=== PATIENT | female | born 1955 | race Caucasian/White ===

== ENCOUNTER → 2018-06-13 09:37 | Outpatient (CLI) | payer BC, SELFPAY ==
[2018-06-13 10:47] LABS: Cholesterol 216 mg/dL (200); High Density Lipoprotein 74 mg/dL; Triglycerides 91 mg/dL; Very Low Density Lipoprotein 18 mg/dL (5-40)
== END ==
PROVIDERS: Family Provider Student in an Organized Health Care Education/Training Program; PCP Student in an Organized Health Care Education/Training Program; Referring Provider Student in an Organized Health Care Education/Training Program; Visit Provider Student in an Organized Health Care Education/Training Program
DX: Z79.899 Other long term (current) drug therapy (principal)
CPT/HCPCS: 36415; 80061

== ENCOUNTER → 2018-06-19 08:04 | Outpatient (CLI) | payer BC, SELFPAY ==
[2017-10-22 08:30] VITALS: BMI 21.1
[2018-06-19 09:25] LABS: Hematocrit 41.7 % (37-47); Hemoglobin 13.5 g/dl (12.0-15.0); Mean Corp Hgb Conc 32.4 g/gl (32-36); Mean Corpuscular Hgb 29.5 pg (27.0-32.0); Mean Corpuscular Volume 91.2 fL (81-99); Platelet Count 176 K/mm3 (150-450); RBC Distribution Width CV 13.4 % (11.6-14.6); RBC Distribution Width SD 43.9 fl (35.1-43.9); Red Blood Count 4.57 M/mm3 (4.2-5.4)
[2018-06-19 09:31] LABS: Scan Indicated on CBC? Y/N NO
[2018-06-19 10:02] LABS: Vitamin D,25 Hydroxy 35.7 ng/mL (29.95-100.01)
[2018-06-19 10:57] LABS: ALB/GLOB Ratio 1.1 RATIO (0.9-2.4); AST(SGOT) 13 U/L (15-37); Alanine Aminotransfer ALT/SGPT 24 U/L (13-56); Alkaline Phosphatase 67 U/L (45-117); Anion Gap 10 (5-15); BUN 16 mg/dL (7-18); Calcium,Total 8.8 mg/dL (8.5-10.1); Chloride 106 mmol/L (98-107); Creatinine, Serum 0.73 mg/dL (0.55-1.02); EST Glomerular Filtration Rate 86 mL/min (>60); Est Glom Filt Rate - Afr Amer 104 mL/min (>60); Free T3 2.9 pg/mL (2.18-3.98); Globulin 3.6 g/dL (2.2-4.2); Glucose 82 mg/dL (74-106); Protein, Total 7.6 g/dL (6.4-8.2); Sodium Level 140 mmol/L (136-145); T4 Free Direct 0.86 ng/dL (0.76-1.46); Thyroid Stim Hormone (TSH) 3.98 uIU/mL (0.358-3.74)
== END ==
PROVIDERS: Family Provider Student in an Organized Health Care Education/Training Program; PCP Student in an Organized Health Care Education/Training Program; Referring Provider Student in an Organized Health Care Education/Training Program; Visit Provider Student in an Organized Health Care Education/Training Program
DX: E78.5 Hyperlipidemia, unspecified (principal); E55.9 Vitamin D deficiency, unspecified; R00.2 Palpitations
CPT/HCPCS: 36415; 80053; 82306; 84439; 84443; 84481; 85027

== ENCOUNTER → 2019-11-05 | Outpatient (CLI) | payer BC, SELFPAY ==
[2019-11-05 08:21] VITALS: BMI 21.1
[2019-11-10 01:09] LABS: HPV APTIMA, High Risk Negative (Negative)
== END | disposition home or self-care (01) ==
LOC: LABSPEC 11-06 09:38
PROVIDERS: PCP Student in an Organized Health Care Education/Training Program; Referring Provider Obstetrics & Gynecology; Visit Provider Obstetrics & Gynecology
DX: Z12.4 Encounter for screening for malignant neoplasm of cervix (principal)
CPT/HCPCS: 87624; 88175; G0145

== ENCOUNTER → 2020-02-01 | Outpatient (CLI) | payer BC, SELFPAY ==
[2019-11-05 08:21] VITALS: BMI 21.1
--- NOTE | 2020-02-01 16:21 | BI_ITS ---
MAMMOGRAPHY - BILATERAL SCREENING REASON FOR EXAM: Female, 64 years old. Routine annual screening examination. PERTINENT HISTORY: Sister with breast cancer. Remote left excisional breast biopsy. TECHNIQUE: Digital bilateral breast norm (3D mammographic acquisition) in the CC and MLO projections. 2-D mediolateral oblique (MLO) and craniocaudad (CC) views of both breasts were obtained. CAD: Full Field Digital Mammography with Computer Added Detection was performed. COMPARISON: Comparison is made with prior outside examination dated 01/05/2019. FINDINGS: Breast Composition: The breasts are extremely dense, which lowers the sensitivity of mammography. There are no dominant masses or suspicious calcifications. No other significant abnormalities are identified. There has been no significant change since the prior study. BI/SCREEN MAMM (CAD) W/NORM BILAT IMPRESSION: Stable bilateral screening mammogram. Yearly follow-up mammogram recommended. (A) ASSESSMENT CATEGORY: BIRADS Category 1: Negative. A letter regarding these results will be sent to the patient by the facility within 30 days. Approximately 10% of breast cancers are not detected by mammography. A normal mammogram should not delay biopsy of a clinically suspicious abnormality. [id number] Electronically Signed: Joon Jones, at 8:21 EDT , Service support ,
== END | disposition home or self-care (01) ==
LOC: OPBI 16:21
PROVIDERS: PCP Student in an Organized Health Care Education/Training Program; Referring Provider Obstetrics & Gynecology; Visit Provider Obstetrics & Gynecology
DX: Z12.31 Encounter for screening mammogram for malignant neoplasm of breast (principal)
CPT/HCPCS: 77063; 77067

== ENCOUNTER → 2021-03-08 10:17 | Outpatient (CLI) | payer MEDICARE, SELFPAY ==
[2019-11-05 08:21] VITALS: BMI 21.1
--- NOTE | 2021-03-08 10:19 | BI_ITS ---
MAMMOGRAPHY - BILATERAL SCREENING REASON FOR EXAM: Female, 65 years old. Routine annual screening examination. PERTINENT HISTORY: Sister with breast cancer. Remote left excisional breast biopsy. TECHNIQUE: Digital bilateral breast norm (3D mammographic acquisition) in the CC and MLO projections. 2-D mediolateral oblique (MLO) and craniocaudad (CC) views of both breasts were obtained. CAD: Full Field Digital Mammography with Computer Added Detection was performed. COMPARISON: Comparison is made with prior study 02/01/2020. FINDINGS: Breast Composition: The breasts are extremely dense, which lowers the sensitivity of mammography. There are no dominant masses or suspicious calcifications. No other significant abnormalities are identified. There has been no significant change since the prior study. BI/SCRN MAMM (CAD)W/NORM BILAT IMPRESSION: Stable bilateral screening mammogram. Yearly follow-up mammogram recommended. (A) ASSESSMENT CATEGORY: BIRADS Category 1: Negative. A letter regarding these results will be sent to the patient by the facility within 30 days. Approximately 10% of breast cancers are not detected by mammography. A normal mammogram should not delay biopsy of a clinically suspicious abnormality. [id number] Electronically Signed: Joon Jones MD at 11:05 EDT , Service support ,
== END ==
PROVIDERS: PCP Student in an Organized Health Care Education/Training Program; Referring Provider Nurse Practitioner Women's Health; Visit Provider Nurse Practitioner Women's Health
DX: Z12.31 Encounter for screening mammogram for malignant neoplasm of breast (principal)
CPT/HCPCS: 77063; 77067

== ENCOUNTER → 2022-03-20 | Outpatient (CLI) | payer MEDICARE, SELFPAY ==
--- NOTE | 2022-03-20 11:55 | BI_ITS ---
MAMMOGRAPHY - BILATERAL SCREENING REASON FOR EXAM: Female, 66 years old. Routine annual screening examination. PERTINENT HISTORY: Sister with breast cancer. Remote left excisional breast biopsy. TECHNIQUE: Digital bilateral breast norm (3D mammographic acquisition) in the CC and MLO projections. 2-D mediolateral oblique (MLO) and craniocaudad (CC) views of both breasts were obtained. CAD: Full Field Digital Mammography with Computer Added Detection was performed. COMPARISON: Comparison is made with prior study dated 03/08/2021 and 02/01/2020. FINDINGS: Breast Composition: The breasts are extremely dense, which lowers the sensitivity of mammography. There are no dominant masses or suspicious calcifications. No other significant abnormalities are identified. There has been no significant change since the prior study. BI/SCRN MAMM (CAD)W/NORM BILAT IMPRESSION: Stable bilateral screening mammogram. Yearly follow-up mammogram recommended. (A) ASSESSMENT CATEGORY: BIRADS Category 1: Negative. A letter regarding these results will be sent to the patient by the facility within 30 days. Approximately 10% of breast cancers are not detected by mammography. A normal mammogram should not delay biopsy of a clinically suspicious abnormality. [id number] Electronically Signed: Joon Jones MD at 13:00 EDT ,
== END | disposition home or self-care (01) ==
LOC: OPBI 11:42
PROVIDERS: PCP Student in an Organized Health Care Education/Training Program; Referring Provider Obstetrics & Gynecology; Visit Provider Obstetrics & Gynecology
DX: Z12.31 Encounter for screening mammogram for malignant neoplasm of breast (principal); Z92.89 Personal history of other medical treatment; Z80.3 Family history of malignant neoplasm of breast
CPT/HCPCS: 77063; 77067

== ENCOUNTER 2022-05-16 08:30 | Outpatient (RCR) | payer MEDICARE, SELFPAY ==
--- NOTE | 2022-02-02 09:17 | HP.OTEVAL_ITS ---
Patient's Visit Information DULCE MARIA HIGHTOWER is a 66 year old F, referred to Occupational Therapy by Dr. Juancho Oglesby MD, with a diagnosis of rupture of FPL left thumb. Date of Evaluation: 01/31/22 Occupational Therapist: Ely Gonzalez, OTR/Maria Esther, CHT - Subjective This 66 year old female was seen for OT eval with dx of rupture of flexor tendon of finger- Pt states tendon ruptured from plate. pt had ORIF 9 years ago - rupture happened November 17 and was able to have the repair on pt arrives 1 week 6 days s/p. pt has thumb spica orthosis on - states she had her stitched removed yesterday 01/30/22. Pt states feeling good otherwise stiffness in fingers. pt is right handed. pt is currently limited with bilateral hand use due to newly healing structures. - ADLs Comments: pt has limited use of left hand due to healing structures - Objective incision dry noted still raised slightly - ROM Wrist: right 75/65 left 35/35 CMC: right 5 left 5 MP: right 50 left 10 IP: right 70 left 5 Opposition: Kapandji opposition scale right 10 left 4 ROM Comments: pt demo with good ROM for newly healing structures- - Strength Strength Comments: will test later date - Sensation Sensation Comments: tingling at times - Quick DASH-Disab of Arm,Shoulder& Hand Quick DASH Score: 59.0900 - Goals Goal:100% adherence to protocol: Yes Comment: Dr. Oglesby Flexor tendon early active motion per his approval on protocol Goal:Daily scar massage when approriate: Yes Goal:ROM equal to unaffected hand: Yes Goal:Signals Intelligence Analyst/Pinch strength at least 75% of unaffected hand: Yes Goal:Full use of affected hand in daily activities including: Yes Goal:Decrease scar hypersensitivity: Yes - Rehabilitation General Assessment: pt arrives to OT s/p from left flexor tendon repair- and hardware removal from left ORIF 9 years ago-. pt arrives 1 week 6 days s/p transfer FDS to FPL , flexor tenosynovectomy left wrist- flexor tenolysis x 9 left forearm- metal removal left radius - left CTR with insertion neurogen tubule left median nerve in forearm scar revision with advancement flap-. Pt demo newly healing structures and is currently limited with all aspects of using her left hand for daily occupations- pt would benefit from OT services 1-2x week for next 8 weeks. pt demo understanding and agrees to POC. Rehabilitation Potential: Good - Anticipated Interventions A/AAROM/PROM, Strengthening, Scar Care, Triggerpoint Release, Modalities, Orthoses, Joint Protection/Energy Conservation, Fine Motor Coord/Cole, Education re assistive Equipment, Education re Diagnosis, Home Program - Visit Plan Frequency: 1-2x /Week Duration: 2 Months TEXT: Thank you for the opportunity to evaluate your patient. For Medicare and Medicare HMO plans, please review the plan of care and approve it. It will need to be FAXED BACK to us at [phone] for Medicare purposes. Please let me know if there are questions or concerns regarding this plan of care. Physician Signature: Date:
--- NOTE | 2022-04-23 11:38 | HP.OTREVAL ---
Dr. Juancho Oglesby MD, It has been my pleasure to treat DULCE MARIA HIGHTOWER over the last 13 visits for rupture of FPL left thumb. Please see the progress note below for an update on the occupational therapy plan of care! Subjective: pt states she is doing OK- still has difficulty with where tendon transfer is at base of thumb in thenar region- pt also states pinch is also not where she would like it but she is still using putty and clothes pins to get her strength- pt states she reports she is at 90% but will compensate 10% of the time due to weakness or soreness. 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 left lateral pinch 8# right is 12#. left tripod pinch 10# right is 12#. wrist ROM 65/55. thumb IP flexion slight movement with compensation- Plan Plan: pt to return to Dr. - therapist gave ideas to use padding to protect sore area. Goals - Goals Patient Goals: Regain Strength, Use Hand/Wrist/Arm Normally Again Goal:100% adherence to protocol: Yes Goal:Daily scar massage when approriate: Yes Goal:ROM equal to unaffected hand: Yes Goal:Gaming Manager/Pinch strength at least 75% of unaffected hand: Yes Goal:Full use of affected hand in daily activities including: Yes Goal:Decrease scar hypersensitivity: Yes Anticipated Interventions Anticipated Interventions: A/AAROM/PROM, Strengthening, Scar Care, Triggerpoint Release, Modalities, Orthoses, Joint Protection/Energy Conservation, Fine Motor Coord/Cole, Education re assistive Equipment, Education re Diagnosis, Home Program Please do not hesitate to contact me at [phone] by phone or if you have questions or concerns regarding this new plan of care! Sincerely, Ely Gonzalez, OTR/L, CHT
--- NOTE | 2022-07-19 09:10 | HP.OT.NRP ---
DULCE MARIA HIGHTOWER was seen in my office for initial evaluation on 01/31/22. The following Plan of Care was established for this patient: Initial Frequency: 1-2x /Week Initial Duration: 2 Months Plan: pt to return to Dr. - therapist gave ideas to use padding to protect sore area. Anticipated Interventions: A/AAROM/PROM, Strengthening, Scar Care, Triggerpoint Release, Modalities, Orthoses, Joint Protection/Energy Conservation, Fine Motor Coord/Cole, Education re assistive Equipment, Education re Diagnosis, Home Program This patient was last seen in our office 05/16/22. Pertinent comments regarding their Occupational therapy will appear below: pt was seen for 15 OT sessions following transfer FDS to FPL , flexor tenosynovectomy left wrist. pt continued to demo limited IP AROM and with blocking could gain 15* pt stated no limitations with ADLs. pt was last seen on 05/16/22 and no further apts. scheduled pt d/c due to time lapse in services. At this point I will be discontinuing this patient from occupational therapy. I would be happy to see this patient again in the future if found appropriate by the physician. Thank you! Ely Gonzalez, OTR/L, CHT
== END 2022-05-16 19:00 | disposition home or self-care (01) ==
LOC: OT 08:30
PROVIDERS: PCP Student in an Organized Health Care Education/Training Program; Referring Provider Orthopaedic Surgery; Visit Provider Orthopaedic Surgery
DX: S56.11 Strain of flexor muscle, fascia and tendon of other and unspecified finger at forearm level (principal); X58.XXXD Exposure to other specified factors, subsequent encounter
CPT/HCPCS: 97110; 97140; 97166; 97530

== ENCOUNTER → 2023-03-27 | Outpatient (CLI) | payer MEDICARE, SELFPAY ==
--- NOTE | 2023-03-27 10:02 | BI_ITS ---
MAMMOGRAPHY - BILATERAL SCREENING REASON FOR EXAM: Female, 67 years old. Routine annual screening examination. PERTINENT HISTORY: Sister with breast cancer. Remote left excisional breast biopsy. TECHNIQUE: Digital bilateral breast norm (3D mammographic acquisition) in the CC and MLO projections. 2-D mediolateral oblique (MLO) and craniocaudad (CC) views of both breasts were obtained. CAD: Full Field Digital Mammography with Computer Added Detection was performed. COMPARISON: Comparison is made with prior study dated March 20, 2022 and March 08, 2021. FINDINGS: Breast Composition: The breasts are extremely dense, which lowers the sensitivity of mammography. There are no dominant masses or suspicious calcifications. No other significant abnormalities are identified. There has been no significant change since the prior study. BI/SCRN MAMM (CAD)W/NORM BILAT IMPRESSION: Stable bilateral screening mammogram. Yearly follow-up mammogram recommended. (A) ASSESSMENT CATEGORY: BIRADS Category 1: Negative. A letter regarding these results will be sent to the patient by the facility within 30 days. Approximately 10% of breast cancers are not detected by mammography. A normal mammogram should not delay biopsy of a clinically suspicious abnormality. [id number] Electronically Signed: Joon Jones MD at 13:36 EDT ,
== END | disposition home or self-care (01) ==
LOC: OPBI 10:01
PROVIDERS: PCP Student in an Organized Health Care Education/Training Program; Referring Provider Obstetrics & Gynecology; Visit Provider Obstetrics & Gynecology
DX: Z12.31 Encounter for screening mammogram for malignant neoplasm of breast (principal); Z80.3 Family history of malignant neoplasm of breast
CPT/HCPCS: 77063; 77067

== ENCOUNTER → 2024-04-15 | Outpatient (CLI) | payer MEDICARE, SELFPAY | END | disposition home or self-care (01) | LOC: OPBI 09:03 | PROVIDERS: PCP Student in an Organized Health Care Education/Training Program; Referring Provider Obstetrics & Gynecology; Visit Provider Obstetrics & Gynecology | DX: Z12.31 Encounter for screening mammogram for malignant neoplasm of breast (principal) | CPT/HCPCS: 77063; 77067 ==

== ENCOUNTER → 2025-04-21 | Outpatient (CLI) | payer MEDICARE, SELFPAY ==
--- NOTE | 2025-04-21 08:15 | BI_ITS ---
EXAM: SCRN MAMM (CAD)W/NORM BILAT DATE: 04/21/2025 CLINICAL HISTORY: F, Age 69 y/o , SCREENING TECHNIQUE: Procedure Code: [id number] Modality: MG Procedure: SCRN MAMM (CAD)W/NORM BILAT COMPARISON: Prior exam(s) were compared FINDINGS: TISSUE DENSITY: The breasts are extremely dense, which lowers the sensitivity of mammography. Bilateral Breast Mammographic Findings: No suspicious masses, calcifications or other abnormalities are identified. Bilateral vascular calcifications are noted. BI/SCRN MAMM (CAD)W/NORM BILAT IMPRESSION: No mammographic evidence of malignancy in either breast. OVERALL FINAL ASSESSMENT BI-RADS 2: BENIGN RECOMMENDATION: Routine annual follow-up in 1 Year Additional Recommendation none A letter with findings and recommendations will be mailed to the patient. Reading Location: [id number]
== END | disposition home or self-care (01) ==
LOC: OPBI 08:02
PROVIDERS: PCP Student in an Organized Health Care Education/Training Program; Referring Provider Obstetrics & Gynecology; Visit Provider Obstetrics & Gynecology
DX: Z12.31 Encounter for screening mammogram for malignant neoplasm of breast (principal)
CPT/HCPCS: 77063; 77067